=== PATIENT | female | born 1965 | race Caucasian/White ===

== ENCOUNTER 2016-11-02 14:09 | Day surgery (SDC) | payer OTHER ==
[2016-10-29 10:09] VITALS: BMI 30.3
[~2016-11-02 14:09] MED LIST: LACTATED RINGERS 1,000 ML IV SCH; LIDOCAINE 1% 20 ML VIAL (10MG/ML) FOR IV START INTRADERMA PRN
[2016-11-02 14:24] VITALS: RESP 16; TEMP 98.1
--- NOTE | 2016-11-02 16:18 | P.PCN ---
Date of Procedure: 11/02/16 Procedure(s) Performed: Procedure: Total colonoscopy. Preoperative diagnosis: Screening for neoplasia. Postoperative diagnosis: Exam within normal limits. Preparation: HalfLytely prep. Sedation: Was provided by anesthesia. Brief clinical history: The patient is a 51-year-old female who is referred for this evaluation for screening for neoplasia age being her risk factor. She has no abdominal complaints, bleeding or anemia. No family history of colon cancer. This would be her first colonoscopy. Procedure: With the patient on her left lateral decubitus position and after informed consent and adequate sedation, the perianal area was inspected and it did not show any fissures or fistulas. There were no masses felt on digital rectal examination. The Olympus CFQ 160L video colonoscope was then inserted in the rectum in the usual fashion and advanced to the cecum. The mucosa appeared healthy. No polyps or tumors were seen or any obvious diverticular disease or other pathology. I retroflexed endoscope in the rectum before the endoscope was withdrawn. The patient tolerated the procedure well. Plan: The patient was reassured. She will follow-up with you as planned and I recommended repeat exam in 10 years.
[2016-11-02 16:50] VITALS: BP 123/88; PULSE 62
== END 2016-11-02 16:53 | disposition home or self-care (01) ==
LOC: ORWHC2ENDO 14:09
DX: Z12.11 Encounter for screening for malignant neoplasm of colon (principal); Z88.8 Allergy status to other drugs, medicaments and biological substances

== ENCOUNTER → 2020-12-12 | Outpatient (CLI) | payer BC ==
--- NOTE | 2020-12-12 09:34 | XR ---
Right knee. HISTORY: Pain following strain 3 months ago. COMPARISON: None. TECHNIQUE: 3 views the right knee were obtained. FINDINGS: There is no fracture, dislocation, intraosseous or intra-articular abnormality. There is no joint eff usion. There is no radiopaque foreign body or abnormal soft tissue calcification. IMPRESSION: No significant abnormality seen.
== END | disposition home or self-care (01) ==
LOC: RADXRYALE 09:06
PROVIDERS: ATTEND Physician Assistant
DX: M25.561 Pain in right knee (principal)